=== PATIENT | female | born 1955 | race Caucasian/White ===

== ENCOUNTER → 2020-07-25 | Outpatient (CLI) | payer MEDICARE ==
[~2020-07-25] MED LIST: ACET500 PO; ASPI81CH PO; Abilify5 MG PO; Buspirone HCl15 MG PO; CITA20 PO; CYAN500 PO; GLIP2.5ER PO; Hair, Skin & N1 EACH PO; LISI5 PO; MECL25 PO; METCAR500 PO; METF500 PO; Meribin5 MG PO; NAPR250 PO; OXAYDO5 M1 PO; OXYACE5T PO; PRAZ2 PO; SELENIUM200 MC1 PO; VITAMIN B125000 MC1 PO; ZYRTEC10 M1 PO
[2020-07-29 15:10] LABS: HPV 16 Negative (Negative); HPV 18 Negative (Negative); HPV OTHER HR TYPES Negative (Negative)
== END ==
LOC: LAB 15:15 → LAB SHORT 15:15
PROVIDERS: Family Medicine
DX: Z01.419 Encounter for gynecological examination (general) (routine) without abnormal findings (principal)
CPT/HCPCS: 87624; G0123

== ENCOUNTER 2020-11-10 05:43 | Day surgery (SDC) | payer MEDICARE ==
[~2020-11-10] VITALS: Ht 157.5 cm; Wt 95.6 kg
[~2020-11-10 05:43] MED LIST changes: -ACET500 PO; -ASPI81CH PO; -Buspirone HCl15 MG PO; -CYAN500 PO; -OXAYDO5 M1 PO
[2020-11-10] MEDS ORDERED: Buspirone HCl15 MG PO (06:16)
--- NOTE | 2020-11-10 06:48 | NUR ---
Ambulatory in Day Surgery Patient confirms NPO status and agrees with scheduled surgery. History, Chart, Medications and Allergies reviewed before start of procedure. Lungs clear T/O to Auscultation. Patient reports completing Chlorhexadine shower X2 prior to admission to hospital. CHEM BG 105. VOIDS PRIOR TO PROCEDCURE.
--- NOTE | 2020-11-10 07:59 | NUR ---
11/10/20 0759 Amie Coley [address]EMPT[address] BY DR ARMSTRONG, UNABLE TO COMPLETE, SWITCED TO GEN.
--- NOTE | 2020-11-10 11:24 | NUR ---
POST OP: REPORT RECEIVED FROM [employer]QU[employer]MENT MECHANIC [employer]. PT TO ROOM AT ABOUT 1000. VSS, PT A/O. DRESSING AT L KNEE CDI AND POLAR PAC IN PLACE. PT REPORTS PAIN OF 6/10, MEDICATED PER EMAR. DENIES NEED FOR VOID AT THIS TIME. WILL CTM
--- NOTE | 2020-11-10 19:11 | NUR ---
SUMMARY: PT IS POD0 L TKA. NO CHANGE SINCE POST OP. PT IS A/O, VSS. PT HAS MINIMAL PAIN TODAY. SURGICAL SITE WNL. ABLE TO WALK WITH THERAPY IN THE [place] AND SEVERAL TIMES TO THE BATHROOM. WHILE AT REST L LEG ELEVATED AND ICED. PT NIKHIL PO AND IS VOIDING. NO ACUTE SAFETY CONCERNS, WILL REPORT TO KEISHA ROSAS.
[2020-11-11 04:31] LABS: BASOPHILS ABSOLUTE AUTO 0.02 K/mm3 (0.00-0.23); BASOPHILS PERCENT AUTO 0 % (0-2); EOSINOPHILS ABSOLUTE AUTO 0.01 K/mm3 (0.00-0.68); EOSINOPHILS PERCENT AUTO 0 % (0-6); Hematocrit 36.5 % (33.0-51.0); Hemoglobin 11.9 g/dL (11.5-16.0); IMMATURE GRAN ABSOLUTE AUTO 0.03 K/mm3 (0.00-0.10); IMMATURE GRAN PERCENT AUTO 0 % (0-1); LYMPHOCYTES ABSOLUTE AUTO 1.35 K/mm3 (0.84-5.20); LYMPHOCYTES PERCENT AUTO 10 % (21-46); MONOCYTES ABSOLUTE AUTO 1.06 K/mm3 (0.16-1.47); MONOCYTES PERCENT AUTO 8 % (4-13); Mean Corpuscular HGB 28.2 pg (26.0-34.0); Mean Corpuscular HGB Conc 32.6 g/dL (31.5-36.5); Mean Corpuscular Volume 87 fL (80-100); Mean Platelet Volume 11.3 fL (9.1-12.4); NEUTROPHILS ABSOLUTE AUTO 10.47 K/mm3 (1.96-9.15); NEUTROPHILS PERCENT AUTO 81 % (41-73); Platelet Count 169 K/mm3 (150-400); RDW Coefficient Variation 12.9 % (11.7-14.2); RDW Standard Deviation 40.6 fL (35.1-46.3); Red Blood Cell Count 4.22 M/mm3 (3.80-5.20); White Blood Cell Count 12.94 K/mm3 (4.00-11.30)
[2020-11-11 04:58] LABS: Bun/Creatinine Ratio 18.3 (12.0-20.0); Calcium, Blood 8.7 mg/dL (8.5-10.1); Creatinine, Blood 1.09 mg/dL (0.40-1.00); Magnesium, Blood 2.2 mg/dL (1.6-2.4); Potassium, Blood 4.1 mmol/L (3.5-5.5)
--- NOTE | 2020-11-11 06:20 | NUR ---
SHIFT SUMMARY LYING IN RECLINER AT BEDSIDE WITH EYES CLOSED. HAS RESTED WELL THIS SHIFT PAIN MANAGED WITH SCHEDULED TORADOL/TYLENOL AND PRN PAIN MEDS. RESPIRATIONS EVEN BUT LABORED ON RA. LUNG SOUNDS CLEAR BILATERALLY. LEFT KNEE WITH HOMERO WRAP THAT IS C/D/I ELEVATED AND POLAR AILEEN IN PLACE. OTTO'S/SCD'S TO BLE. HAS AMBULATED IN THE HALLWAY THIS SHFIT, TOELRATED WELL. ABDOMEN SOFT AND NONDISTENDED. BOWEL SOUNDS NOTED IN ALL QUADS. RIGHT FA SL PIV IS PATENT, FLUSHING WITH EASE. GOOD DISTAL PULSES NOTED. DENIES FURTHER NEEDS AT THIS TIME. SAFETY MEASURES IN PLACE. WILL CONTINUE TO MONITOR AND ADDRESS NEEDS THEY ARISE. WILL GIVE HAND OFF TO ONCOMING SHIFT USING SBAR DURING BEDSIDE REPORT.
[2020-11-11] MEDS ORDERED: ACET500 PO (09:00)
[2020-11-11] MEDS ORDERED: ASPI81CH PO (09:08)
[2020-11-11] MEDS ORDERED: CYAN500 PO (09:09)
[2020-11-11] MEDS ORDERED: OXAYDO5 M1 PO (09:13)
--- NOTE | 2020-11-11 12:17 | NUR ---
DISCHARGE: PT CLEARED BY THERAPY. DISCHARGE PACKET PRINTED AND PT EDUCATED. PT GIVEN EXTRA AQUACEL DRESSING AND SCRIPT. NO NEEDED MEDS FROM PHARMACY. IV DC'D WNL. PT LEFT UNIT VIA WHEELCHAIR WITH AHSAN ABREU, AT ABOUT 1000.
== END 2020-11-11 10:11 | disposition home or self-care (01) ==
LOC: ORSCMMR 05:43 → ORD 07:30 → ORSCMMR 07:30 → SURS 09:43 → ORSCMMR 11-11 10:11 → SURS 11-11 10:11
PROVIDERS: Orthopaedic Surgery
PROC: 8E0Y0CZ Robotic Assisted Procedure of Lower Extremity, Open Approach (ICD-10-PCS; principal; 2020-11-10 07:30)
PROC: 0SRD0JA Replacement of Left Knee Joint with Synthetic Substitute, Uncemented, Open Approach (ICD-10-PCS; principal; 2020-11-10 07:30)
DX: M17.12 Unilateral primary osteoarthritis, left knee (principal); I10 Essential (primary) hypertension; Z87.891 Personal history of nicotine dependence; N18.9 Chronic kidney disease, unspecified; E11.9 Type 2 diabetes mellitus without complications; E66.01 Morbid (severe) obesity due to excess calories; Z68.38 Body mass index [BMI] 38.0-38.9, adult; Z79.899 Other long term (current) drug therapy
CPT/HCPCS: 27447; S2900; 36415; 73560-LT; 80048; 82947; 83735; 85025; 97110; 97116; 97162; A9270; C1776; J0171; J0690; J0735; J1100; J1885; J2250; J2370; J2405; J2704; J2795; J3010; J7120

== ENCOUNTER 2021-05-04 05:48 | Day surgery (SDC) | payer MEDICARE ==
[~2021-05-04] VITALS: Ht 157.5 cm; Wt 91.1 kg
[~2021-05-04 05:48] MED LIST changes: +ACET500 PO; +ASPI81CH PO; +Buspirone HCl15 MG PO; +CEPH500 PO; +CYAN500 PO; +OXAYDO5 M1 PO
--- NOTE | 2021-05-04 18:41 | NUR ---
SHIFT SUMMARY PATIENT POD [address] VALLE. ALERT AND ORIENTED, PLEASANT AND COOPERATIVE. PATIENT TOLERATING ADA DIET AND LIQUIDS. ROUTINE IV ABX AND FLUIDS. AMBULATED IN HALLS WITH SBA, FWW, AND GAIT BELT WITH PHYSICAL THERAPY. SBA TO BATHROOM. RATES PAIN 1/10 WITH PO PAIN MEDICATION. VOIDING WELL. VSS. WILL REPORT TO FOOD COURT TEAM MEMBER RN.
[2021-05-05 06:09] LABS: Bun/Creatinine Ratio 21.3 (12.0-20.0); Calcium, Blood 9.5 mg/dL (8.5-10.1); Creatinine, Blood 1.08 mg/dL (0.40-1.00); Magnesium, Blood 2.1 mg/dL (1.6-2.4); Potassium, Blood 4.6 mmol/L (3.5-5.5)
--- NOTE | 2021-05-05 06:29 | NUR ---
SHIFT SUMMARY PT HAS DONE WELL THIS SHIFT. UP TO BATHROOM SEVERAL TIMES & AMBULATED IN HALLWAY x 1. PAIN WELL CONTROLLED w/ PO MEDS. DRINKING FLUIDS & VOIDING WELL. AQUACEL UNCHANGED DURING MY SHIFT.
[2021-05-05 07:58] LABS: BASOPHILS ABSOLUTE AUTO 0.01 K/mm3 (0.00-0.23); BASOPHILS PERCENT AUTO 0 % (0-2); EOSINOPHILS ABSOLUTE AUTO 0.04 K/mm3 (0.00-0.68); EOSINOPHILS PERCENT AUTO 0 % (0-6); Hematocrit 37.1 % (33.0-51.0); Hemoglobin 11.8 g/dL (11.5-16.0); IMMATURE GRAN ABSOLUTE AUTO 0.05 K/mm3 (0.00-0.10); IMMATURE GRAN PERCENT AUTO 1 % (0-1); LYMPHOCYTES ABSOLUTE AUTO 1.33 K/mm3 (0.84-5.20); LYMPHOCYTES PERCENT AUTO 14 % (21-46); MONOCYTES ABSOLUTE AUTO 0.95 K/mm3 (0.16-1.47); MONOCYTES PERCENT AUTO 10 % (4-13); Mean Corpuscular HGB 28.2 pg (26.0-34.0); Mean Corpuscular HGB Conc 31.8 g/dL (31.5-36.5); Mean Corpuscular Volume 89 fL (80-100); Mean Platelet Volume 11.1 fL (9.1-12.4); NEUTROPHILS ABSOLUTE AUTO 7.39 K/mm3 (1.96-9.15); NEUTROPHILS PERCENT AUTO 76 % (41-73); Platelet Count 148 K/mm3 (150-400); RDW Coefficient Variation 12.8 % (11.7-14.2); RDW Standard Deviation 41.5 fL (35.1-46.3); Red Blood Cell Count 4.19 M/mm3 (3.80-5.20); White Blood Cell Count 9.77 K/mm3 (4.00-11.30)
[2021-05-05] MEDS ORDERED: Percocet 5-3251 EACH PO (10:21)
--- NOTE | 2021-05-05 10:57 | NUR ---
DISCHARGE NOTE: PATIENT WAS EDUCATED ON DISCHARGE INSTRUCTIONS. SHE VERBALIZED UNDERSTANDING OF INSTRUCTIONS. HARD PERSCRIPTION IS IN HER INSTRUCTION FOLDER. IV WAS TAKEN OUT AND WNL. PATIENT IS ALERT AND ORIENTED X4. VS ARE WNL AND IS ON RA. PAIN IS MANAGED WITH PO PAIN MEDS. RIGHT KNEE HAS AQUACEL AND HOMERO WRAP THAT IS C/D/I. SHE DENIES NUMBNESS AND TINGLING. PATIENT TOLERATED PO INTAKE AND WAS VOIDING. SHE IS DRESSED AND HAS HER PERSONAL ITEMS IN BAGS. IS PICKING HER UP AND DRIVING HER HOME. SHE IS CURRENTLY BEING WHEELCHAIRED OUT TO HIS TRUCK.
== END 2021-05-05 10:51 | disposition home or self-care (01) ==
LOC: ORSCMMR 05:48 → ORD 07:30 → SURS 10:48 → ORSCMMR 05-05 10:51
PROVIDERS: Orthopaedic Surgery
PROC: 0SRC0JA Replacement of Right Knee Joint with Synthetic Substitute, Uncemented, Open Approach (ICD-10-PCS; principal; 2021-05-04 07:30)
PROC: 8E0Y0CZ Robotic Assisted Procedure of Lower Extremity, Open Approach (ICD-10-PCS; principal; 2021-05-04 07:30)
DX: M17.11 Unilateral primary osteoarthritis, right knee (principal); I10 Essential (primary) hypertension; Z87.891 Personal history of nicotine dependence; K21.9 Gastro-esophageal reflux disease without esophagitis; N18.9 Chronic kidney disease, unspecified; E66.01 Morbid (severe) obesity due to excess calories; Z68.36 Body mass index [BMI] 36.0-36.9, adult; F41.8 Other specified anxiety disorders; Z79.899 Other long term (current) drug therapy; Z79.82 Long term (current) use of aspirin
CPT/HCPCS: 27447; S2900; 36415; 73560-RT; 80048; 82947; 83735; 85025; 90686; 97110; 97110-CQ; 97116-CQ; 97161; 97530-CQ; A9270; C1776; J0171; J0690; J0735; J1100; J1885; J2250; J2405; J2704; J2795; J3010; J7120

== ENCOUNTER 2021-12-15 14:56 | Inpatient (IN) | payer MEDICARE ==
[~2021-12-15] VITALS: Ht 157.5 cm; Wt 105.2 kg
[~2021-12-15 14:56] MED LIST changes: -OMEP20ER PO
[2021-12-15 20:32] LABS: Influenza A, PCR NEGATIVE (NEGATIVE); Influenza B, PCR NEGATIVE (NEGATIVE); Resp Syncytial Virus, PCR NEGATIVE (NEGATIVE); SARS-Cov-2 (COVID-19) PCR, MMC NEGATIVE (NEGATIVE)
[2021-12-15] MEDS ORDERED: OMEP20ER PO (20:56)
[2021-12-16 05:57] LABS: BASOPHILS ABSOLUTE AUTO 0.02 K/mm3 (0.00-0.23); BASOPHILS PERCENT AUTO 0 % (0-2); EOSINOPHILS ABSOLUTE AUTO 0.09 K/mm3 (0.00-0.68); EOSINOPHILS PERCENT AUTO 1 % (0-6); Hematocrit 37.4 % (33.0-51.0); IMMATURE GRAN ABSOLUTE AUTO 0.04 K/mm3 (0.00-0.10); IMMATURE GRAN PERCENT AUTO 0 % (0-1); LYMPHOCYTES ABSOLUTE AUTO 0.87 K/mm3 (0.84-5.20); LYMPHOCYTES PERCENT AUTO 8 % (21-46); MONOCYTES ABSOLUTE AUTO 0.82 K/mm3 (0.16-1.47); MONOCYTES PERCENT AUTO 8 % (4-13); Mean Corpuscular HGB 27.5 pg (26.0-34.0); Mean Corpuscular HGB Conc 32.1 g/dL (31.5-36.5); Mean Corpuscular Volume 86 fL (80-100); Mean Platelet Volume 10.3 fL (9.1-12.4); NEUTROPHILS ABSOLUTE AUTO 8.86 K/mm3 (1.96-9.15); NEUTROPHILS PERCENT AUTO 83 % (41-73); Platelet Count 175 K/mm3 (150-400); RDW Coefficient Variation 13.7 % (11.7-14.2); Red Blood Cell Count 4.36 M/mm3 (3.80-5.20)
[2021-12-16 06:29] LABS: Albumin, Blood 2.8 g/dL (3.4-5.0); Albumin/Globulin Ratio 0.7 (0.8-1.8); Bilirubin, Total 1.7 mg/dL (0.1-1.0); Bun/Creatinine Ratio 20.6 (12.0-20.0); Calcium, Blood 8.5 mg/dL (8.5-10.1); Creatinine, Blood 0.82 mg/dL (0.40-1.00); Globulin, Blood 3.8 g/dL (2.2-4.0); Potassium, Blood 3.8 mmol/L (3.5-5.5); Total Protein, Blood 6.6 g/dL (6.4-8.2)
--- NOTE | 2021-12-16 09:24 | NUR ---
PATIENT ARRIVED FROM ER TODAY 12/16/21 AT 0900. LISA PATIENT IS A&OX4. VS ARE WNL AND IS ON RA. PATIENT REPORTS MINIMAL PAIN BUT DENIES WANTING PAIN MEDICATIONS AT THIS TIME. ABD IS TENDER TO TOUCH BUT HAS HYPERACTIVE BOWEL TONES. SHE IS TOLERATING PO CLEARS DIET AND IS VOIDING/PASSING GAS. PATIENT HAS IV FLUIDS RUNNING. CALL LIGHT WITHIN REACH. PATIENT WILL BE TRANSFERRED TO [facility] IN [place] TO HAVE AN ERCP AND THEN FOLLOWING UP WITH A CHOLECYSTECTOMY.
--- NOTE | 2021-12-16 15:13 | NUR ---
SHIFT SUMMARY: LISA/ERCP NO SIGNIFICANT CHANGES SINCE COMING BACK FROM ER. PATIENT IS TOLERATING CLEARS PO INTAKE. SHE IS VOIDING/PASSING GAS. PATIENT IS INDEP IN THE ROOM. PAIN IS MANAGED WITH IV DILAUDID. ABD IS TENDER TO TOUCH WELL WITH AMBULATION. CALLS APPROPRIATELY. CALL LIGHT WITHIN REACH. THE PLAN IS TO CONTINUE WAITING FOR A BED UP IN [facility] IN [place] THAT CAN DO THE ERCP AND THEN WILL HAVE THE LISA SURGERY. CONTINUE PAIN MANAGEMENT.
[2021-12-17 06:05] LABS: BASOPHILS ABSOLUTE AUTO 0.03 K/mm3 (0.00-0.23); BASOPHILS PERCENT AUTO 0 % (0-2); EOSINOPHILS ABSOLUTE AUTO 0.15 K/mm3 (0.00-0.68); EOSINOPHILS PERCENT AUTO 2 % (0-6); Hematocrit 34.7 % (33.0-51.0); IMMATURE GRAN ABSOLUTE AUTO 0.03 K/mm3 (0.00-0.10); IMMATURE GRAN PERCENT AUTO 0 % (0-1); LYMPHOCYTES ABSOLUTE AUTO 1.43 K/mm3 (0.84-5.20); LYMPHOCYTES PERCENT AUTO 15 % (21-46); MONOCYTES ABSOLUTE AUTO 0.92 K/mm3 (0.16-1.47); MONOCYTES PERCENT AUTO 10 % (4-13); Mean Corpuscular HGB 27.6 pg (26.0-34.0); Mean Corpuscular HGB Conc 31.7 g/dL (31.5-36.5); Mean Corpuscular Volume 87 fL (80-100); Mean Platelet Volume 10.8 fL (9.1-12.4); NEUTROPHILS ABSOLUTE AUTO 7.15 K/mm3 (1.96-9.15); NEUTROPHILS PERCENT AUTO 74 % (41-73); Platelet Count 144 K/mm3 (150-400); RDW Coefficient Variation 13.6 % (11.7-14.2); RDW Standard Deviation 43.6 fL (35.1-46.3); Red Blood Cell Count 3.99 M/mm3 (3.80-5.20); White Blood Cell Count 9.71 K/mm3 (4.00-11.30)
[2021-12-17 06:31] LABS: Albumin, Blood 2.6 g/dL (3.4-5.0); Albumin/Globulin Ratio 0.7 (0.8-1.8); Bun/Creatinine Ratio 16.8 (12.0-20.0); Calcium, Blood 8.4 mg/dL (8.5-10.1); Creatinine, Blood 0.95 mg/dL (0.40-1.00); Globulin, Blood 3.6 g/dL (2.2-4.0); Magnesium, Blood 1.9 mg/dL (1.6-2.4); Phosphorus, Blood 2.6 mg/dL (2.5-4.9); Potassium, Blood 3.7 mmol/L (3.5-5.5); Total Protein, Blood 6.2 g/dL (6.4-8.2)
--- NOTE | 2021-12-17 06:31 | NUR ---
ASSUMED CARE OF PT AT 1900 HRS. PT IS A&OX4, INDEPENDENT IN ROOM, AND IS ABLE TO MAKE NEEDS KNOWN. PT IS WAITING FOR A BED W/ PROVIDEVAE FOR ERCP. UPDATE GIVEN TO [facility] TRANSF[facility], NO AVAILABLE ETA AT THIS TIME. NO ACUTE CHANGES, PT ABLE TO SLEEP 7+ HOURS THIS SHIFT. WILL CONTINUE TO MONITOR AND GIVE REPORT TO ONCOMING NURSE.
--- NOTE | 2021-12-17 14:34 | NUR ---
NO BED AVAILABLE TODAY PER [facility], THEIR WAIT LIST HAS CLOSED FOR NOW PER MANAGER EMBALMER FUNERAL DIRECTOR, DR. OROSCO NOTIFIED.
--- NOTE | 2021-12-17 14:47 | NUR ---
Pt. is in bed and welcomes my visit. Pt. is pleasant but is unsettled by the wait for a bed at [facility]. Listen empathetically. Pt. displays evidence of leopoldo and trust. Establish rapport with Pt. Prayed with pt. Pt. verbalized gratitude for the spiritual care visit.
--- NOTE | 2021-12-17 19:43 | NUR ---
SHIFT SUMMARY PT CONTINUES TO WAIT FOR TRANSFER TO A HOSPITAL THAT CAN PERFORM AN ERCP. PAIN MANAGED WITH DILAUDID IV. PT TOLERATING CLEAR LIQUIDS. INDEPENDENT IN THE ROOM. REPORT GIVEN TO KEISHA ROSAS.
--- NOTE | 2021-12-17 22:29 | NUR ---
PT TRANSPORTED TO [facility] IN [facility] FOR PROCEEDURE. PT ABLE TO AMBULATE FREELY TO TRANSPORT STRETCHER. PERSONAL BELONGINS AND PAPERWORK GIVEN TO EMS TRANSPORT. REPORT GIVEN TO WILLIAN AT LOCATED WITHIN [facility].
== END 2021-12-17 22:30 | disposition short-term general hospital (02) | DRG 444 ==
LOC: ER 14:56 → ERHOLD 23:51 → SURS 12-16 09:01
PROVIDERS: Emergency Medicine; Hospitalist; ADMIT Internal Medicine
DX: K80.70 Calculus of gallbladder and bile duct without cholecystitis without obstruction (principal); K85.10 Biliary acute pancreatitis without necrosis or infection; Z68.41 Body mass index [BMI] 40.0-44.9, adult; Z20.822 Contact with and (suspected) exposure to COVID-19; K75.9 Inflammatory liver disease, unspecified; F31.9 Bipolar disorder, unspecified; F41.9 Anxiety disorder, unspecified; K76.0 Fatty (change of) liver, not elsewhere classified; K21.9 Gastro-esophageal reflux disease without esophagitis; E66.01 Morbid (severe) obesity due to excess calories; D69.6 Thrombocytopenia, unspecified; D64.9 Anemia, unspecified; I10 Essential (primary) hypertension; E11.9 Type 2 diabetes mellitus without complications; Z98.84 Bariatric surgery status; Z98.890 Other specified postprocedural states; Z88.6 Allergy status to analgesic agent; Z79.82 Long term (current) use of aspirin; Z79.899 Other long term (current) drug therapy
CPT/HCPCS: 0241U; 36415; 74181; 76705; 80053; 82947; 83615; 83735; 84100; 85025; 86140; 96374; 96375; 96376; 99285-25; A9270; J1170; J2405; J7030; J7120

== ENCOUNTER → 2021-12-15 | Outpatient (CLI) | payer MEDICARE ==
[~2021-12-15] MED LIST changes: +OMEP20ER PO; +Percocet 5-3251 EACH PO
[2021-12-15 12:25] LABS: BASOPHILS ABSOLUTE AUTO 0.03 K/mm3 (0.00-0.23); BASOPHILS PERCENT AUTO 0 % (0-2); EOSINOPHILS ABSOLUTE AUTO 0.05 K/mm3 (0.00-0.68); EOSINOPHILS PERCENT AUTO 1 % (0-6); Hematocrit 42.3 % (33.0-51.0); Hemoglobin 13.9 g/dL (11.5-16.0); IMMATURE GRAN ABSOLUTE AUTO 0.05 K/mm3 (0.00-0.10); IMMATURE GRAN PERCENT AUTO 1 % (0-1); LYMPHOCYTES PERCENT AUTO 10 % (21-46); MONOCYTES ABSOLUTE AUTO 0.62 K/mm3 (0.16-1.47); MONOCYTES PERCENT AUTO 7 % (4-13); Mean Corpuscular HGB Conc 32.9 g/dL (31.5-36.5); Mean Corpuscular Volume 85 fL (80-100); Mean Platelet Volume 10.2 fL (9.1-12.4); NEUTROPHILS ABSOLUTE AUTO 7.85 K/mm3 (1.96-9.15); NEUTROPHILS PERCENT AUTO 82 % (41-73); Platelet Count 220 K/mm3 (150-400); RDW Coefficient Variation 13.7 % (11.7-14.2); RDW Standard Deviation 42.5 fL (35.1-46.3); Red Blood Cell Count 4.96 M/mm3 (3.80-5.20)
[2021-12-15 12:33] LABS: Albumin, Blood 3.4 g/dL (3.4-5.0); Albumin/Globulin Ratio 0.8 (0.8-1.8); Bun/Creatinine Ratio 20.4 (12.0-20.0); Creatinine, Blood 1.13 mg/dL (0.40-1.00); Globulin, Blood 4.2 g/dL (2.2-4.0); Potassium, Blood 3.7 mmol/L (3.5-5.5); Total Protein, Blood 7.6 g/dL (6.4-8.2)
[2021-12-16 23:07] LABS: HBSAG SCREEN Negative (Negative); HCV AB 0.1 (0.0-0.9); HEP A AB, IGM Negative (Negative); HEP B CORE AB, TOT Negative (Negative)
== END | disposition home or self-care (01) ==
LOC: LAB SHORT 12:15 → LAB 12:15
PROVIDERS: Chiropractor
DX: R10.13 Epigastric pain (principal); R74.01 Elevation of levels of liver transaminase levels
CPT/HCPCS: 80053; 83690; 85025; 86704; 86708; 86803; 87340

== ENCOUNTER 2023-03-24 10:07 | Day surgery (SDC) | payer MEDICARE, OTHER ==
[~2023-03-24] VITALS: Ht 157.5 cm; Wt 97.3 kg
[~2023-03-24 10:07] MED LIST changes: +OMEP20ER PO
[2023-03-24] MEDS ORDERED: FAMO20 PO (10:59)
[2023-03-24] MEDS ORDERED: FERSU300 PO (11:00)
[2023-03-24] MEDS ORDERED: ESTRADIOL42.5 GM (11:00)
[2023-03-24] MEDS ORDERED: METFORMIN HCL500 M3 PO (11:00)
--- NOTE | 2023-03-24 12:27 | NUR ---
03/24/23 1227 Cleo Cavanaugh STRAIGHT CATHETER USED AT THE BEGINNING OF PROCEDURE BY RN TO EMPTY BLADDER 50ML FLUID DEFICIT.
[2023-03-24 12:49] VITALS: BP 160/73
--- NOTE | 2023-03-24 13:54 | NUR ---
03/24/23 1354 Fabian Gabriel IV REMOVED INTACT. SITE WNL.
== END 2023-03-24 13:25 | disposition home or self-care (01) ==
LOC: ORSCSDS 10:07
PROVIDERS: Obstetrics & Gynecology
PROC: 0UDB8ZX Extraction of Endometrium, Via Natural or Artificial Opening Endoscopic, Diagnostic (ICD-10-PCS; principal; 2023-03-24 12:00)
DX: R93.89 Abnormal findings on diagnostic imaging of other specified body structures (principal); N84.0 Polyp of corpus uteri; E78.00 Pure hypercholesterolemia, unspecified; E11.22 Type 2 diabetes mellitus with diabetic chronic kidney disease; I12.9 Hypertensive chronic kidney disease with stage 1 through stage 4 chronic kidney disease, or unspecified chronic kidney disease; N18.30 Chronic kidney disease, stage 3 unspecified; F41.0 Panic disorder [episodic paroxysmal anxiety]; Z79.84 Long term (current) use of oral hypoglycemic drugs; Z79.899 Other long term (current) drug therapy; Z79.82 Long term (current) use of aspirin; G47.33 Obstructive sleep apnea (adult) (pediatric)
CPT/HCPCS: 82947; 88305; J1100; J2405; J3010

== ENCOUNTER 2024-05-16 11:30 | Day surgery (SDC) | payer MEDICARE ==
[~2024-05-16] VITALS: Ht 157.5 cm; Wt 102.1 kg
[~2024-05-16 11:30] MED LIST changes: +Balanced Salt Epinephrine Irrigation Solution 500 mL IR SCH; +ESTRADIOL42.5 GM; +FAMO20 PO; +FERSU300 PO; +Lidocaine HCl/Pf 1% 5 ML VIAL XX SCH; +METFORMIN HCL500 M3 PO; +Moxifloxacin HCL 0.5 MG/0.1 ML 0.4MLSYR RIGHTEYE SCH; +PHENYLEPHRINE\\TROPICAMIDE\\TETRACAINE OPHTHALMIC DILATING SOLN RIGHTEYE PRN; +Povidone-Iodine 450 DROP/30 ML Solution ONE; +Povidone-Iodine 450 DROP/30 ML Solution RIGHTEYE SCH; +Tetracaine HCl/Pf 0.5% Opth Soln 4 ml ONE
[2024-05-16] MEDS ORDERED: Diazepam 2 MG Tab ONE (12:29)
--- NOTE | 2024-05-16 12:44 | NUR ---
05/16/24 1244 Heather Benavides 1228: PT REPORTED ANXIETY SCALE OF 8/10, REPORTED SHE TOOK THE 5 MG DIAZEPAM SHE WAS INSTRUCTED TO TAKE BEFORE COMING TO FACILITY AT 1100 1239: ADMINISTERED 2 MG DIAZEPAM PO PER ORDERS FOR ANXIETY
[2024-05-16] MEDS ORDERED: TRAZ50 (12:48)
[2024-05-16] MEDS ORDERED: FLUT.05NI (12:49)
[2024-05-16 13:30] VITALS: BP 162/74
== END 2024-05-16 13:37 | disposition home or self-care (01) ==
LOC: ORSCSDS 11:30
PROVIDERS: Student in an Organized Health Care Education/Training Program
PROC: 08RJ3JZ Replacement of Right Lens with Synthetic Substitute, Percutaneous Approach (ICD-10-PCS; principal; 2024-05-16 13:00)
DX: E13.36 Other specified diabetes mellitus with diabetic cataract (principal); H25.813 Combined forms of age-related cataract, bilateral; H21.81 Floppy iris syndrome; G47.33 Obstructive sleep apnea (adult) (pediatric); E13.22 Other specified diabetes mellitus with diabetic chronic kidney disease; I12.9 Hypertensive chronic kidney disease with stage 1 through stage 4 chronic kidney disease, or unspecified chronic kidney disease; N18.9 Chronic kidney disease, unspecified; E66.01 Morbid (severe) obesity due to excess calories; Z68.41 Body mass index [BMI] 40.0-44.9, adult; Z79.84 Long term (current) use of oral hypoglycemic drugs; Z79.899 Other long term (current) drug therapy; Z87.891 Personal history of nicotine dependence
CPT/HCPCS: 82947; A9270; V2632

== ENCOUNTER 2024-05-22 11:07 | Day surgery (SDC) | payer MEDICARE ==
[~2024-05-22] VITALS: Ht 157.5 cm; Wt 102.1 kg
[~2024-05-22 11:07] MED LIST changes: +FLUT.05NI; +Moxifloxacin HCL 0.5 MG/0.1 ML 0.4MLSYR LEFTEYE SCH; -Moxifloxacin HCL 0.5 MG/0.1 ML 0.4MLSYR RIGHTEYE SCH; +PHENYLEPHRINE\\TROPICAMIDE\\TETRACAINE OPHTHALMIC DILATING SOLN LEFTEYE PRN; -PHENYLEPHRINE\\TROPICAMIDE\\TETRACAINE OPHTHALMIC DILATING SOLN RIGHTEYE PRN; +Povidone-Iodine 450 DROP/30 ML Solution LEFTEYE SCH; -Povidone-Iodine 450 DROP/30 ML Solution RIGHTEYE SCH; +TRAZ50
[2024-05-22] MEDS ORDERED: Diazepam 2 MG Tab ONE (12:35)
--- NOTE | 2024-05-22 13:12 | NUR ---
05/22/24 1312 Lexis Wahl UPON ARRIVAL INTO PREOP AREA PT REPORTED ANXIETY AT 5/10. PT REPORTED SHE TOOK 7.5MG PO AT 1055 PRIOR TO ARRIVAL TO [facility]. PER ORDER FROM DR LARA PT GIVEN ADDITIONAL 2MG TABLET OF VALIUM PO AT 1242. PT REPORTS ANXIETY NOW AT 3/10. SPO2 AND HR BEING MONITORED CONTINUOUSLY. SPO2 CURRENTLY 100% AND HR 53. DAUGHTER AT BEDSIDE VISITING WITH PATIENT.
--- NOTE | 2024-05-22 14:21 | NUR ---
05/22/24 1421 Fabian Gabriel PT INSTRUCTED TO MONITOR B/P AT HOME, AND FOLLOW UP WITH PCP NEEDED. PT STATES SDU B/P WITHIN 20% OF BASELINE. SHE REPORTED PRE-OP ANXIETY.
[2024-05-22 14:22] VITALS: BP 159/68
== END 2024-05-22 14:11 | disposition home or self-care (01) ==
LOC: ORSCSDS 11:07
PROVIDERS: Student in an Organized Health Care Education/Training Program
PROC: 08RK3JZ Replacement of Left Lens with Synthetic Substitute, Percutaneous Approach (ICD-10-PCS; principal; 2024-05-22 13:00)
DX: E11.36 Type 2 diabetes mellitus with diabetic cataract (principal); H25.812 Combined forms of age-related cataract, left eye; Z96.1 Presence of intraocular lens; G47.33 Obstructive sleep apnea (adult) (pediatric); E11.22 Type 2 diabetes mellitus with diabetic chronic kidney disease; N18.30 Chronic kidney disease, stage 3 unspecified; Z79.84 Long term (current) use of oral hypoglycemic drugs; Z79.82 Long term (current) use of aspirin; Z79.899 Other long term (current) drug therapy
CPT/HCPCS: 82947; A9270; V2632

== ENCOUNTER → 2024-12-15 | Outpatient (CLI) | payer MEDICARE ==
[~2024-12-15] MED LIST changes: -Balanced Salt Epinephrine Irrigation Solution 500 mL IR SCH; -Lidocaine HCl/Pf 1% 5 ML VIAL XX SCH; -Moxifloxacin HCL 0.5 MG/0.1 ML 0.4MLSYR LEFTEYE SCH; -PHENYLEPHRINE\\TROPICAMIDE\\TETRACAINE OPHTHALMIC DILATING SOLN LEFTEYE PRN; -Povidone-Iodine 450 DROP/30 ML Solution LEFTEYE SCH; -Povidone-Iodine 450 DROP/30 ML Solution ONE; -Tetracaine HCl/Pf 0.5% Opth Soln 4 ml ONE
[2024-12-15 17:55] LABS: BASOPHILS ABSOLUTE AUTO 0.04 K/mm3 (0.00-0.23); BASOPHILS PERCENT AUTO 1 % (0-2); EOSINOPHILS ABSOLUTE AUTO 0.16 K/mm3 (0.00-0.68); EOSINOPHILS PERCENT AUTO 2 % (0-6); Hematocrit 39.0 % (33.0-51.0); Hemoglobin 13.2 g/dL (11.5-16.0); IMMATURE GRAN ABSOLUTE AUTO 0.02 K/mm3 (0.00-0.10); IMMATURE GRAN PERCENT AUTO 0 % (0-1); LYMPHOCYTES ABSOLUTE AUTO 1.87 K/mm3 (0.84-5.20); LYMPHOCYTES PERCENT AUTO 27 % (21-46); MONOCYTES ABSOLUTE AUTO 0.74 K/mm3 (0.16-1.47); MONOCYTES PERCENT AUTO 11 % (4-13); Mean Corpuscular HGB Conc 33.8 g/dL (31.5-36.5); Mean Corpuscular Volume 91 fL (80-100); NEUTROPHILS ABSOLUTE AUTO 4.16 K/mm3 (1.96-9.15); NEUTROPHILS PERCENT AUTO 59 % (41-73); NRBC ABSOLUTE 0.00 K/mm3 (0.00-0.02); NRBC Auto 0.0 /100 WBC (0.0-0.2); Platelet Count 198 K/mm3 (150-400); RDW Coefficient Variation 12.2 % (11.7-14.2); RDW Standard Deviation 40.4 fL (35.1-46.3)
[2024-12-15 18:21] LABS: Alanine Aminotransfer (ALT/SGP 31.0 U/L (12-78); Albumin, Blood 3.2 g/dL (3.4-5.0); Albumin/Globulin Ratio 0.9 (0.8-1.8); Anion Gap 9.0 mmol/L (3-11); Aspartate Aminotrans (AST/SGOT 17.0 U/L (12-37); Bilirubin, Total 0.2 mg/dL (0.1-1.0); Blood Urea Nitrogen 15.0 mg/dL (8-24); CO2, Blood 27.0 mmol/L (21-32); Calcium, Blood 8.8 mg/dL (8.5-10.1); Chloride, Blood 105.0 mmol/L (98-108); Creatinine, Blood 1.25 mg/dL (0.40-1.00); Globulin, Blood 3.7 g/dL (2.2-4.0); Glucose, Blood 113.0 mg/dL (70-99); Potassium, Blood 4.0 mmol/L (3.5-5.5); Sodium, Blood 137.0 mmol/L (136-145); Thyroid Stimulating Hormone 1.11 uIU/mL (0.360-4.800); Total Protein, Blood 6.9 g/dL (6.4-8.2)
== END | disposition home or self-care (01) ==
LOC: LAB SHORT 16:50 → LAB 16:50
PROVIDERS: Physician Assistant
DX: R00.2 Palpitations (principal)
CPT/HCPCS: 80053; 84443; 85025